=== PATIENT | female | born 1970 | race Caucasian/White ===

== ENCOUNTER 2018-06-17 07:19 | Day surgery (SDC) | payer MEDICAID ==
--- NOTE | 2018-06-14 13:16 | PREOPHP ---
DATE OF ADMISSION: 06/17/2018 Scheduled for surgery 06/17/2018. HISTORY OF PRESENT ILLNESS: The patient is a 47-year-old female in overall stable health with invasive ductal carcinoma of the left breast status post neoadjuvant chemotherapy. The patient presented in 11/2017 with a left breast mass located at 3:30 approximately 6 cm from the nipple measuring 3 x 4 cm. Core biopsy revealed invasive ductal carcinoma. The patient was estrogen receptor, progesterone receptor and HER-2 negative. She underwent neoadjuvant chemotherapy with marked decrease in the mass and is now scheduled for surgery to include left breast partial mastectomy with preoperative needle localization by mammogram and left axillary sentinel lymph node biopsy. PAST MEDICAL HISTORY: MEDICATIONS: 1. Lisinopril 10 mg. 2. Hydrochlorothiazide 25 mg. ALLERGIES: NONE. OPERATIONS: section x3. REVIEW OF SYSTEMS: The patient is still having regular menstrual periods. PHYSICAL EXAMINATION: VITAL SIGNS: The patient is 5 feet, 6 inches and 188 pounds with normal vital signs. HEENT: Within normal limits. LUNGS: Clear. HEART: Regular rate, rhythm. BREASTS: Reveals large ptotic breasts. Right breast is unremarkable. Examination of the left breast revealed initially a large mass at 3:30 measuring 3 x 4 cm extending towards the areolar border located 6 cm from the nipple. Since her neoadjuvant chemotherapy, examination has revealed that the left breast mass is no longer clearly palpable and on ultrasound, the mass was not visualized. There is no palpable axillary, supraclavicular lymphadenopathy. ABDOMEN: Soft. PELVIC AND RECTAL: Per primary care doctor EXTREMITIES: Without edema. NEUROLOGIC: Physiologic. ASSESSMENT AND PLAN: Invasive ductal carcinoma left breast, triple negative, status post neoadjuvant chemotherapy. PLAN: Left breast partial mastectomy with preoperative needle localization by mammogram and left axillary sentinel lymph node biopsy. I had a full discussion with the patient regarding the nature of her condition and the nature of the surgery, indications, alternatives, options and risks including bleeding, infection, need for additional surgery or treatments based on final pathology, change in shape form of breast, scarring, nipple distortion, neuritis and neuralgia, et cetera. All questions have been answered. The patient understands and agrees to proceed. Dictated By: LANE SWEENEY/JEAN Conf#: [id number] DID#: [id number] [facility]
[2018-06-17] VITALS (43 sets, daily range): BP systolic 125–157; BP diastolic 68–88; PULSE 72–120; RESP 14–20; Ht 165.1 cm; Wt 86.5 kg
[~2018-06-17] VITALS: Ht 165.1 cm; Wt 86.5 kg
[~2018-06-17 07:19] MED LIST: CEFAZOLIN 1 GM INJ ONE; CEFAZOLIN 1 GM/50 ML (PMX) 50 ML IVPB SCH; SOD CHLORIDE 0.9% 1,000 ML IV SCH
--- NOTE | 2018-06-17 10:22 | HPN ---
Date/Time of Note Date/Time of Note DATE: 06/17/18 TIME: 10:21 Interval H&P Admission Note Pt. seen H&P reviewed: No system changes LANE DANIELS Jun 17, 2018 10:22
[2018-06-17] MEDS ORDERED: LISI1TAB8 PO (11:08)
--- NOTE | 2018-06-17 11:41 | PREAC ---
Date/Time of Note Date/Time of Note DATE: 06/17/18 TIME: 11:34 Anesthesia Eval and Record Evaluation Time Pre-Procedure Interview DATE: 06/17/18 TIME: 11:34 Age 47 Sex female NPO: 8 hrs Preoperative diagnosis ductal carcinoma Planned procedure mastectomy Past Medical History Past Medical History: Includes Cardio: HTN Surgery & Anesthesia Issues No known issue Meds Anticoagulation: No Beta Pearl within 24 hr: No Reason Beta Pearl not given: Pt. not on B-Pearl Reported Medications Lisinopril/Hydrochlorothiazide (Lisinopril-Hctz 20-25 mg Tab) 1 Each Tablet, 1 EACH PO DAILY, TAB 06/17/18 Current Medications Sodium Chloride 1,000 ml @ 75 mls/hr [id number] IV ; Start 06/17/18 at 07:00 Cefazolin Sodium 50 ml @ 100 mls/hr OC IVPB ; Start 06/17/18 at 07:00 Meds reviewed: Yes Allergies Coded Allergies: No Known Allergy (Unverified , 06/17/18) Allergies Reviewed: Yes Labs/Studies Labs Reviewed: Reviewed by anesthesiologist Result Diagram: 06/17/18 0821 06/17/18 0821 Laboratory Tests 06/17/18 08:21 test: Negative Pre-procedure Exam Last vitals Vital Signs Date Temp Pulse Resp B/P (MAP) Pulse Ox O2 O2 Flow FiO2 Time Delivery Rate 06/17/18 98.5 81 18 130/75 97 Room Air 11:25 (93) Airway: Adequate mouth opening, Adequate thyromental dist Mallampati: Mallampati IV Teeth: Normal Lung: Normal Heart: Normal ASA Physical Status ASA physical status: 3 Emergency: None Pre-operative Attestations Prior to commencing anesthesia and surgery, the patient was re-evaluated, there was verification of: *The patient's identity *The results of appropriate recent lab work and preoperative vital signs *The above evaluation not changing prior to induction *Anesthetic plan, risk benefits, alternative and complications discussed with patient/family; questions answered; patient/family understands, accepts and wi shes to proceed. ARGENTINA HILL DO Jun 17, 2018 11:40
[2018-06-17] MEDS ORDERED: HYDROmorphONE 1 MG/5 ML IV SYRINGE IV PRN ×2 (12:00)
[2018-06-17] MEDS ORDERED: LABETALOL HCL 20MG INJ IV PRN (12:00)
[2018-06-17] MEDS ORDERED: FENTAnyl 50 MCG/ML VIAL ONE ×3 (12:07→12:55)
[2018-06-17] MEDS ORDERED: ONDANSETRON 4 MG INJ ONE (12:31)
[2018-06-17] MEDS ORDERED: LIDOCAINE 2% (SDV) 5 ML INJ ONE (12:31)
[2018-06-17] MEDS ORDERED: PROPOFOL 20 ML ONE (12:31)
[2018-06-17] MEDS ORDERED: ROPIVACAINE 0.2% 20 ML VIAL ONE (13:18)
[2018-06-17] MEDS ORDERED: ISOSULFAN BLUE 1% 5 ML INJ SC ONE (13:20)
--- NOTE | 2018-06-17 13:38 | SIPON ---
Date/Time of Note Date/Time of Note DATE: 06/17/18 TIME: 13:36 Operative Report Preoperative Diagnosis carcinoma left breast Postoperative Diagnosis same Operation/Procedure Performed left breast partial mastectomy with pre-op needle localization and left axillary sentinel lymph node biopsy Surgeon see signature line seed analysis laboratory assistant ty Anesthesia: general Estimated blood loss: minimal Transfusion Required none Specimen left breast partial mastectomy, left axillary nodes Grafts/Implants none Complications none LANE DANIELS Jun 17, 2018 13:38
--- NOTE | 2018-06-17 13:52 | PAC ---
Date/Time of Note Date/Time of Note DATE: 06/17/18 TIME: 13:52 Post-Anesthesia Notes Post-Anesthesia Note Last documented vital signs Vital Signs Date Temp Pulse Resp B/P (MAP) Pulse Ox O2 O2 Flow FiO2 Time Delivery Rate 06/17/18 98 92 18 131/78 97 Room Air 1352 Activity: WNL Respiratory function: WNL Cardiovascular function: WNL Mental status: Baseline Pain reasonably controlled: Yes Hydration appropriate: Yes Nausea/Vomiting absent: Yes ARGENTINA HILL DO Jun 17, 2018 13:52
[2018-06-17] MEDS ORDERED: ONDANSETRON 4 MG INJ IV PRN (14:00)
[2018-06-17] MEDS ORDERED: HYDROmorphONE 1 MG/ML SYG SC PRN (14:00)
[2018-06-17] MEDS ORDERED: HYDROCODONE/APAP (5/325) TAB PO PRN (14:00)
[2018-06-17] MEDS ORDERED: DIPHENHYDRAMINE 50 MG INJ IV PRN (14:00)
[2018-06-17] MEDS ORDERED: ACETAMINOPHEN 325 MG TAB PO PRN (14:00)
[2018-06-17] MEDS ORDERED: CEFAZOLIN 2 GM/50 ML (PMX) 50 ML IVPB SCH (14:00)
--- NOTE | 2018-06-17 14:21 | OPR ---
DATE OF OPERATION: 06/17/2018 SURGEON: Lane Vásquez MD CLINICAL REVIEWER: Gideon Huffman MD ANESTHESIOLOGIST: Dr. Granados. ANESTHESIA: General. PREOPERATIVE DIAGNOSIS: Invasive ductal carcinoma, left breast. POSTOPERATIVE DIAGNOSIS: Invasive ductal carcinoma, left breast. OPERATION PERFORMED: Left breast partial mastectomy with preoperative needle localization and left a xillary sentinel lymph node biopsy. DESCRIPTION OF PROCEDURE: The patient was taken to the operating room and under general anesthesia, with sequential compression device stockings in place, she was prepped and draped in usual fashion. 3 mL of isosulfan blue was injected at the 2 o'clock at the areolar border intradermal and the breast massaged. A transverse curvilinear left axillary incision was made, achieving hemostasis with caute ry and incising the clavipectoral fascia. Blue stained lymph node was identified and the lower level dissection was performed using the [employer] electrosurgical device. The sentinel node was marked and the pathologist inspected the tissues, finding several additional nodes. After irrigation the field was seen to be with satisfactory and secured hemostasis. Through a separate stab incision inferolate ral a 19 mm Kerivn drain was placed into the axilla and sutured to the skin with a 2-0 nylon suture. The clavipectoral fascia was closed with interrupted 3-0 Vicryl, subcutaneous tissue was closed with interrupted 3-0 Vicryl and the skin closed with continuous 4-0 Monocryl subcuticular suture. Attenti on was then directed to the left breast where a radial incision was made at 3 o'clock as the wire loc alization was placed laterally and the lesion was deep against the chest wall. Flaps were dissected circumferentially. Partial mastectomy was accomplished including pectoralis fascia and incorporating the entire hook wire. The specimen was oriented with suture markers anterior, medial and superior a nd given for specimen radiograph and then to pathology. The field was irrigated with sterile water a nd hemostasis was secured. The incision was closed with interrupted 3-0 Vicryl, deep dermal subcutan eous sutures. Then, the skin closed with continuous 4-0 Monocryl subcuticular suture. Tincture of b enzoin and 1/2-inch Steri-Strips were applied to both incisions followed by dry sterile dressings. F inal sponge and needle counts were correct. The patient tolerated the procedure well and left the op erating room in good condition. Dictated By: LANE VÁSQUEZ MD DS/JEAN Conf#: [id number] DID#: [id number] CC: MARGARET HUFFMAN MD; LANE VÁSQUEZ MD;*EndCC*
[2018-06-17] MEDS: D5W-0.45 NACL + KCL 20 MEQ 1,000 ML IV SCH ×2 (17:31→23:38)
--- NOTE | 2018-06-17 17:55 | RADRPT ---
Vent Rate: 75 bpm RR Interval: 0 msec ME Interval: 130 msec QRS Duration: 78 msec QT Interval: 386 msec QTC Interval: 431 msec P-R-T [place]: 31 - 27 - 44 degrees Normal sinus rhythm Normal ECG Electronically Signed By: Lb Oneil
[2018-06-17] MEDS: HYDROmorphONE 1 MG/ML SYG IV PRN ×2 (18:34→23:24)
[2018-06-18 01:40] VITALS: BP 94/50; PULSE 81; RESP 16
[2018-06-18] MEDS ORDERED: CEFAZOLIN 2 GM/50 ML (PMX) 50 ML IVPB SCH (02:00)
[2018-06-18] MEDS: HYDROmorphONE 1 MG/ML SYG IV PRN ×2 (04:03→08:29)
[2018-06-18] MEDS: D5W-0.45 NACL + KCL 20 MEQ 1,000 ML IV SCH (04:03)
[2018-06-18] MEDS ORDERED: HYDROCHLOROTHIAZIDE 25 MG TAB PO SCH (06:00)
[2018-06-18 07:25] VITALS: BP 113/66; PULSE 83; RESP 17
[2018-06-18] MEDS ORDERED: LISINOPRIL 20 MG TAB PO SCH (09:00)
--- NOTE | 2018-06-18 09:40 | PN ---
Date/Time of Note Date/Time of Note DATE: 06/18/18 TIME: 09:37 Assessment/Plan Lines/Catheters IV Catheter Type (from Nrsg): Peripheral IV Subjective 24 Hr Interval Summary Additional Comments AVSS feeling well this AM ate breakfast and ambulated in room. felt dizzy but receiving only dilaudid SQ for pain instead of [place] left breast and axilla incisions clean with intact steristrips RIAZ drain small amount serosang Imp. doing well Plan: discharge Rx [place] #20 f/u office 06/23 instructions/limitations/supplies provided/discussed Exam/Review of Systems Vital Signs Vitals Vital Signs Date Temp Pulse Resp B/P (MAP) Pulse Ox O2 O2 Flow FiO2 Time Delivery Rate 06/18/18 99.0 83 17 113/66 94 Room Air 07:25 (82) 06/17/18 2.0 15:35 Intake and Output 06/17/18 06/17/18 06/18/18 1515:00 23:00 07:00 IntakeIntake Total 2000 ml 120 ml 2110 ml OutputOutput Total 50 ml 650 ml BalanceBalance 1950 ml -530 ml 2110 ml Results Result Diagram: 06/17/18 0821 06/17/[address] DANIELS Jun 18, 2018 09:40
== END 2018-06-18 10:53 | disposition home or self-care (01) ==
LOC: SDS 07:19 → REC 13:54 → UNDOADMIN 13:54 → 2NE 14:25 → REC 16:20 → 2NE 16:20 → SDS 06-18 10:53
PROVIDERS: ATTEND Surgery
DX: N60.22 Fibroadenosis of left breast (principal); N60.12 Diffuse cystic mastopathy of left breast; Z85.3 Personal history of malignant neoplasm of breast; I10 Essential (primary) hypertension
CPT/HCPCS: 19301; 38500; 38792; 71045; 80053; 85025; 85610; 85730; 88307; 93005; J0690; J1170; J2405; J2795; J3010; J3480; Z7512; Z7610; Q9968